=== PATIENT | male | born 1935 | race Caucasian/White ===

== ENCOUNTER 2022-05-26 05:55 | Day surgery (SDC) | payer MEDICAID, MEDICARE, OTHER ==
[2022-05-26] MEDS ORDERED: Sodium Chloride 0.9% 1,000 ML IV SCH (06:30)
[2022-05-26] MEDS ORDERED: Lidocaine 1% with EPINEPHrine 1:100,000 50 ML MDV ONE (06:42)
[2022-05-26] MEDS ORDERED: Bupivacaine 0.5% 50 ML MDV ONE (06:42)
[2022-05-26] MEDS ORDERED: Bupivacaine 0.5%/EPINEPHrine 1:200,000 50 ML MDV ONE (06:42)
[2022-05-26 07:02] LABS: ESTIMATED GFR 84 mL/min (>60)
[2022-05-26] MEDS ORDERED: Propofol 200 MG/20 ML SDV ONE ×2 (07:14→08:24)
[2022-05-26] MEDS ORDERED: fentaNYL 100 MCG/2 ML SDV ONE (07:14)
[2022-05-26] MEDS ORDERED: ceFAZolin 2 GM in Sodium Chloride 0.9% 50 ML IV ONE (07:30)
[2022-05-26] MEDS ORDERED: metroNIDAZOLE/Normal Saline 500 MG in Premix Bag 1 BAG IV ONE (07:30)
[2022-05-26] MEDS ORDERED: Ropivacaine 28 ML, dexAMETHasone 8 MG, EPINEPHrine 0.4 MG, Sodium Chloride 0.9% 49.6 ML NERVRT SCH ×4 (07:45)
[2022-05-26 10:05] VITALS: BP 146/65; PULSE 91
== END 2022-05-26 10:20 | disposition home or self-care (01) ==
LOC: JP.SDS 05:55
PROVIDERS: ATTEND Surgery
DX: K40.30 Unilateral inguinal hernia, with obstruction, without gangrene, not specified as recurrent (principal); D17.6 Benign lipomatous neoplasm of spermatic cord; I10 Essential (primary) hypertension; E78.5 Hyperlipidemia, unspecified; E11.9 Type 2 diabetes mellitus without complications; E55.9 Vitamin D deficiency, unspecified; N40.0 Benign prostatic hyperplasia without lower urinary tract symptoms; Z79.899 Other long term (current) drug therapy; Z90.49 Acquired absence of other specified parts of digestive tract; Z98.890 Other specified postprocedural states
CPT/HCPCS: 36415; 49507; 80053; 85027; C1713; C1781; J0171; J0690; J1100; J2704; J2795; J3010; J3490; J7030

== ENCOUNTER 2024-04-25 12:52 | Inpatient (IN) | payer OTHER, MEDICARE ==
[2024-04-25 13:31] LABS: BASOPHILS ABSOLUTE AUTO 0.03 K/uL (0.00-0.10); BASOPHILS PERCENT AUTO 0.3 % (0.1-1.3); EOSINOPHILS ABSOLUTE AUTO 0.04 K/uL (0.00-0.40); EOSINOPHILS PERCENT AUTO 0.5 % (0.0-5.4); HEMATOCRIT 35.4 % (38.4-49.7); HEMOGLOBIN 13.1 g/dL (12.9-16.9); IMMATURE GRAN ABSOLUTE AUTO 0.05 K/uL (0.00-0.23); IMMATURE GRAN PERCENT AUTO 0.6 % (0.0-0.7); LYMPHOCYTES ABSOLUTE AUTO 1.22 K/uL (0.8-3.3); LYMPHOCYTES PERCENT AUTO 13.8 % (11.4-47.7); MEAN CORPUSCULAR VOLUME 83.7 fL (81.4-99.0); MONOCYTES ABSOLUTE AUTO 0.82 K/uL (0.20-0.90); MONOCYTES PERCENT AUTO 9.3 % (3.3-12.6); NEUTROPHILS ABSOLUTE AUTO 6.67 K/uL (1.0-7.6); NEUTROPHILS PERCENT AUTO 75.5 % (40.0-78.1); PLATELET COUNT,PLT 271 K/uL (130-375); RED BLOOD CELL COUNT 4.23 M/uL (4.14-5.76); WHITE BLOOD CELL COUNT,WBC 8.8 K/uL (3.2-11.0)
[2024-04-25 13:40] LABS: APPEARANCE,URINE CLEAR (CLEAR); BILIRUBIN,URINE NEGATIVE (NEGATIVE); COLOR,URINE YELLOW (YELLOW); GLUCOSE,URINE NEGATIVE (NEGATIVE); KETONES,URINE NEGATIVE (NEGATIVE); LEUKOCYTE ESTERASE,URINE NEGATIVE (NEGATIVE); NITRITE,URINE NEGATIVE (NEGATIVE); OCCULT BLOOD,URINE SMALL (NEGATIVE); PROTEIN,URINE NEGATIVE (NEGATIVE); UROBILINOGEN,URINE 0.2 EU/dL (0.2-1.0)
[2024-04-25 13:47] LABS: AMORPHOUS SEDIMENT,URINE NOT SEEN; BACTERIA,URINE NOT SEEN; EPITHELIAL CELLS,URINE FEW; MUCUS,URINE NOT SEEN; WBC,URINE NOT SEEN (0-5)
[2024-04-25 13:51] LABS: A/G RATIO 1.2 (1.2-2.2); ALANINE AMINOTRANSFERASE,ALT 14 U/L (12-78); ALBUMIN 3.9 g/dL (3.4-5.0); ALKALINE PHOSPHATASE 76 U/L (46-116); ASPARTATE AMNIOTRANSFERASE,AST 13 U/L (15-37); BLOOD UREA NITROGEN,BUN 15 mg/dL (7-18); CALCIUM 9.1 mg/dL (8.5-10.1); CARBON DIOXIDE,CO2 27 mmol/L (21-32); CHLORIDE,CL 95 mmol/L (100-108); CREATININE 0.8 mg/dL (0.8-1.3); EST CRCL DRUG DOSING (CG) 46.01 mL/min; ESTIMATED GFR 86 mL/min (>60); GLUCOSE RANDOM 164 mg/dL (74-106); POTASSIUM,K 4.3 mmol/L (3.6-5.2); PROTEIN TOTAL,TP 7.1 g/dL (6.4-8.2); SODIUM,NA 131 mmol/L (140-148)
[2024-04-25 13:58] LABS: ANION GAP 13.3 mmol/L (5.0-14.0)
[2024-04-25] MEDS: Furosemide 40 MG/4 ML VIAL IVPUSH ONE (15:25)
[2024-04-25] MEDS: Sodium Chloride 0.9% 10 ML Syringe FLUSH PRN (16:01)
[2024-04-25] MEDS: Sodium Chloride 0.9% 100 ML IV SCH (16:01)
[2024-04-25] MEDS: Iopamidol 755 Mg/ML 100 ML Bottle IV SCH (16:01)
[2024-04-25] MEDS: Clopidogrel 75 MG Tab PO ONE (17:49)
[2024-04-25] MEDS: Aspirin 81 MG Tab.Chew PO ONE (17:50)
[2024-04-25] MEDS ORDERED: Ondansetron 4 MG/2 ML SDV IV PRN (19:22)
[2024-04-25] MEDS ORDERED: Magnesium Hydroxide 400 MG/5 ML Susp 30 ML Cup PO PRN (19:22)
[2024-04-25] MEDS ORDERED: Acetaminophen 325 MG Tab PO PRN (19:22)
[2024-04-25] MEDS ORDERED: Ondansetron 4 MG Tab.DIS PO PRN (19:22)
[2024-04-25] MEDS ORDERED: Sennosides/Docusate Sodium 50-8.6 MG Tab PO PRN (19:22)
[2024-04-25] MEDS: atorvaSTATin 20 MG Tab PO SCH (21:46)
[2024-04-25] MEDS: Melatonin 3 MG Tab PO SCH (21:46)
[2024-04-26 05:32] LABS: CHOLESTEROL HDL 54 mg/dL (40-60); CHOLESTEROL LDL DIRECT 96 mg/dL (0-100); CHOLESTEROL TOTAL 161 mg/dL (0-200); TRIGLYCERIDES 98 mg/dL (15-150)
[2024-04-26] MEDS: Clopidogrel 75 MG Tab PO SCH (08:45)
[2024-04-26] MEDS: Aspirin 81 MG Tab.EC PO SCH (08:46)
[2024-04-26] MEDS: Escitalopram 10 MG Tab PO SCH (08:46)
[2024-04-26] MEDS: Lisinopril 20 MG Tab PO SCH (08:46)
[2024-04-26] MEDS: FLU (Fluad Triv) TS24-25 (65UP)/MF59C/PF 45 MCG/0.5 ML Syringe IM ONE (15:54)
[2024-04-26] MEDS: metFORMIN 500 MG Tab PO SCH (17:12)
[2024-04-29 13:32] VITALS: BP 149/83; PULSE 77
== END 2024-04-29 13:35 | DRG 65 ==
LOC: JP.ED 12:52 → JP.MS 17:58
PROVIDERS: ADMIT Internal Medicine; ATTEND Internal Medicine
DX: I63.211 Cerebral infarction due to unspecified occlusion or stenosis of right vertebral artery (principal); F03.90 Unspecified dementia, unspecified severity, without behavioral disturbance, psychotic disturbance, mood disturbance, and anxiety; F02.B4 Dementia in other diseases classified elsewhere, moderate, with anxiety; Z90.49 Acquired absence of other specified parts of digestive tract; G30.1 Alzheimer's disease with late onset; I10 Essential (primary) hypertension; E11.9 Type 2 diabetes mellitus without complications; N40.1 Benign prostatic hyperplasia with lower urinary tract symptoms; R29.810 Facial weakness; R35.0 Frequency of micturition; Z79.84 Long term (current) use of oral hypoglycemic drugs; Z90.89 Acquired absence of other organs; Z79.82 Long term (current) use of aspirin; Z79.02 Long term (current) use of antithrombotics/antiplatelets; Z98.890 Other specified postprocedural states; Z79.899 Other long term (current) drug therapy
CPT/HCPCS: 36415; 70450 ×2; 70496 ×2; 70498 ×2; 80053; 81001; 82947; 85025; J3490 ×2; Q9967; 70551; 70551-26; 80061; 90653; 97112-GP; 97162-GP; 97166-GO; 99222; 99231; 99232; 99238; A9270-GY; G0008